=== PATIENT | female | born 1995 | race Caucasian/White ===

== ENCOUNTER 2016-12-09 15:03 | Emergency (ER) | payer SELFPAY ==
[~2016-12-09] VITALS: Ht 160 cm; Wt 87.9 kg
[~2016-12-09 15:03] MED LIST: BACT800T5 PO; CEPH500C3 PO
[2016-12-09 15:13] VITALS: BP 123/79; PULSE 101; RESP 18; TEMP 98.9; O2SAT 97
--- NOTE | 2016-12-09 15:26 | PD ---
HPI Chief Complaint: GI Complaint Time Seen by Provider: 15:09 Travel History International Travel<30 days: No Contact w/Intl Traveler<30days: No Traveled to known affect area: No History of Present Illness HPI The patient was seen and examined in the presence of the nurse. This patient complains of nausea and vomiting and diarrhea and diffuse muscle achiness and headache and congestion. She has occasional cramps in the epigastric area. Currently not having abdominal pain. Duration is 2 days. No alleviating factors. 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 SKIN: Focused skin assessment warm/dry. HEAD: Normocephalic. EYES: No scleral icterus. No injection or drainage. NECK: Supple, trachea midline. No JVD or lymphadenopathy. CARDIOVASCULAR: Regular rate and rhythm without murmurs, gallops, or rubs. RESPIRATORY: Breath sounds equal bilaterally. No accessory muscle use. GASTROINTESTINAL: Abdomen soft, non-tender, nondistended. MUSCULOSKELETAL: No cyanosis, or edema. BACK: Nontender without obvious deformity. No CVA tenderness. Data Data Last Documented VS Vital Signs Date Time Temp Pulse Resp B/P Pulse Ox O2 Delivery O2 Flow Rate FiO2 12/09/16 15:13 98.9 101 18 123/79 97 Orders Ed Urine Pregnancytest Poc (12/09/16 15:11) MDM Medical Decision Making Medical Screen Exam Complete: Yes Emergency Medical Condition: Yes Medical Record Reviewed: Yes Differential Diagnosis Flu syndrome, ectopic , gastroenteritis Narrative Course I have reviewed the patient's electronic medical record. Urine is negative Patient's exam is normal with soft benign nontender abdomen Blood pressure is normal and heart rate 100 and she is afebrile She looks euvolemic I gave her injection of Zofran and Toradol Prescription for Zofran written Recommend primary care follow-up. Expect gradual resolution of symptoms. I think most likely she has an acute viral syndrome Diagnosis Primary Impression: Nausea vomiting and diarrhea Additional Impression: Acute viral syndrome Additional Instructions: The patient was advised to follow up with their physician and return if they worsen. I have recommended clear liquids for 24 hours, then gradually advance as tolerated. Med/Other Pt SpecificInfo: Prescription(s) given Scripts No Active Prescriptions or Reported Meds Disposition: 01 DISCHARGE HOME Condition: Stable Russell Fung MD Dec 09, 2016 15:26
[2016-12-09] MEDS ORDERED: ZOFR4TAB PO (15:27)
[2016-12-09] MEDS ORDERED: KETOROLAC TROMETHAMINE 60 MG/2 ML (IM) VIAL IM ONE (15:30)
[2016-12-09] MEDS ORDERED: ONDANSETRON HCL 4 MG/2 ML VIAL IM ONE (15:30)
== END 2016-12-09 15:45 | disposition home or self-care (01) ==
LOC: PHED 15:03
DX: B34.9 Viral infection, unspecified (principal); R11.2 Nausea with vomiting, unspecified; R19.7 Diarrhea, unspecified; M79.1 Myalgia; R51 Headache; R10.13 Epigastric pain; Z72.0 Tobacco use
CPT/HCPCS: 84703; 96372; 99284; J1885; J2405